=== PATIENT | male | born 1955 | race Hispanic/Latino ===

== ENCOUNTER 2024-02-02 21:15 | Inpatient (IN) | payer MEDICARE, OTHER ==
[2024-02-02] MEDS ORDERED: Amiodarone 450 MG in Dextrose 5% in Water 250 ML IVPB SCH (22:15)
[2024-02-02] MEDS ORDERED: Amiodarone 150 MG in Dextrose 5% in Water 100 ML IVPB SCH (22:15)
[2024-02-02 22:21] LABS: #Basophils 0.03 10x3/uL (0.0-0.2); %Basophils 0.6 % (0.0-1.0); %Eosinophils 6.3 % (0.0-10.0); %Lymphocytes 20.8 % (21.0-51.0); %Monocytes 11.7 % (0.0-10.0); %Neutrophils 60.2 % (42.0-75.0); Hematocrit 47.7 % (42.0-52.0); Hemoglobin 16.3 g/dL (14.0-18.0); Mean Corpuscular HGB CONC 34.2 g/dL (32.0-36.0); Mean Corpuscular Hemoglobin 33.3 pg (27.0-31.0); Mean Corpuscular Volume 97.3 fL (78.0-98.0); Mean Platelet Volume 9.6 fL (7.4-10.4); Platelet Count 141 10x3/uL (130-400); RBC Distribution Width 13.9 % (11.5-14.5)
[2024-02-02 22:35] LABS: INR-International Normal Ratio 1.2; PTT 33.5 sec (22.9-36.1); Prothrombin Time 14.7 sec (12.0-14.7)
[2024-02-02 22:38] LABS: ALT (SGPT) 13 U/L (8-55); AST (SGOT) 21 U/L (5-34); Acetaminophen Less than 10 mcg/mL (Less than 10); Albumin 3.7 g/dL (3.4-4.8); Alcohol Less than 10.0 mg/dL (Less than 10); Alkaline Phosphatase 145 U/L (40-110); Anion Gap 15 mmol/L (10-20); BUN (Urea Nitrogen) 20 mg/dL (8.4-25.7); Bilirubin, Total 1.9 mg/dL (0.2-1.2); Calc. Creatinine Clearance 0 mL/min (70-130); Calcium 8.8 mg/dL (7.8-10.44); Carbon Dioxide 26 mmol/L (23-31); Chloride 99 mmol/L (98-107); Estimated GFR 93; Glucose 114 mg/dL (80-115); Potassium 4.1 mmol/L (3.5-5.1); Protein, Total 7.7 g/dL (5.8-8.1); Salicylate Less than 8.0 mg/dL (Less than 8.0); Sodium 136 mmol/L (136-145)
[2024-02-02 22:40] LABS: Troponin I Less than 0.010 ng/mL (< 0.028)
[2024-02-02 22:43] LABS: Amphetamine Not Detected (NotDetected); Barbiturates Screen Not Detected (NotDetected); Benzodiazepine Screen Not Detected (NotDetected); Cocaine Metabolite Screen Not Detected (NotDetected); Methadone Not Detected (NotDetected); Methamphetamine Not Detected (NotDetected); Opiate Screen Not Detected (NotDetected); Oxycodone Screen Not Detected (NotDetected); Phencyclidine (PCP) Not Detected (NotDetected); THC/Cannabinoid Screen Not Detected (NotDetected); Tricyclic Screen Not Detected (NotDetected)
[2024-02-02] MEDS ORDERED: Calcium Carbonate 500 MG ChewTAB PO PRN (22:51)
[2024-02-02] MEDS ORDERED: Ondansetron PF 4 MG/2 ML Vial IVP PRN (22:51)
[2024-02-02] MEDS ORDERED: Acetaminophen 325 MG TAB PO PRN (22:51)
[2024-02-02] MEDS ORDERED: Ondansetron ODT 4 MG TAB PO PRN (22:51)
[2024-02-02] MEDS ORDERED: Senokot S 8.6-50 MG TAB PO PRN (22:51)
[2024-02-02] MEDS ORDERED: Metoprolol Tartrate 5 MG (5 mL) VIAL ONE (23:09)
[2024-02-03 01:08] LABS: Troponin I Less than 0.010 ng/mL (< 0.028)
[2024-02-03] MEDS: Amiodarone 150 MG in Dextrose 5% in Water 100 ML IVPB SCH (01:42)
[2024-02-03 01:56] VITALS: BMI 41.5
[2024-02-03 03:34] LABS: #Basophils 0.04 10x3/uL (0.0-0.2); %Basophils 0.7 % (0.0-1.0); %Eosinophils 8.2 % (0.0-10.0); %Lymphocytes 24.5 % (21.0-51.0); %Monocytes 14.4 % (0.0-10.0); %Neutrophils 51.9 % (42.0-75.0); Hematocrit 35.8 % (42.0-52.0); Mean Corpuscular HGB CONC 33.5 g/dL (32.0-36.0); Mean Corpuscular Hemoglobin 33.1 pg (27.0-31.0); Mean Corpuscular Volume 98.9 fL (78.0-98.0); Mean Platelet Volume 9.3 fL (7.4-10.4); Platelet Count 148 10x3/uL (130-400); RBC Distribution Width 13.8 % (11.5-14.5); Red Blood Cell (RBC) Count 3.62 mill/uL (4.70-6.10)
[2024-02-03] MEDS: Communication Order-Pharmacy FS ONE (04:10)
[2024-02-03 04:15] LABS: Anion Gap 14 mmol/L (10-20); BUN (Urea Nitrogen) 17 mg/dL (8.4-25.7); Calc. Creatinine Clearance 163 mL/min (70-130); Calcium 8.3 mg/dL (7.8-10.44); Carbon Dioxide 25 mmol/L (23-31); Chloride 100 mmol/L (98-107); Estimated GFR 94; Glucose 133 mg/dL (80-115); Potassium 4.1 mmol/L (3.5-5.1); Sodium 135 mmol/L (136-145)
[2024-02-03 04:20] LABS: Troponin I Less than 0.010 ng/mL (< 0.028)
[2024-02-03] MEDS: Amiodarone 450 MG in Dextrose 5% in Water 250 ML IVPB SCH (07:59)
[2024-02-03] MEDS: Enoxaparin 80 MG (0.8 mL) SYRINGE SC SCH (08:02)
[2024-02-03] MEDS: Magnesium 2 GM/50 ML(in water) 2 GM in Premix 1 BAG IVPB SCH (08:14)
[2024-02-03] MEDS: Levothyroxine Sodium 50 MCG TAB PO SCH (11:22)
[2024-02-03] MEDS: Terazosin HCl 5 MG CAP PO SCH (20:04)
[2024-02-03] MEDS: Digoxin 0.5 MG/2 ML AMP SLOW IVP SCH (20:04)
[2024-02-04] MEDS: Digoxin 0.5 MG/2 ML AMP SLOW IVP SCH (01:26)
[2024-02-04] MEDS: Levothyroxine Sodium 50 MCG TAB PO SCH (05:23)
[2024-02-05 07:48] VITALS: TEMP 98.1
[2024-02-05] MEDS ORDERED: Lidocaine Viscous Sol 2% 15 ml UD Cup ONE (10:15)
[2024-02-05] MEDS ORDERED: Midazolam HCl 2 mg/2 ml Vial ONE ×2 (10:59→11:52)
[2024-02-05] MEDS ORDERED: fentaNYL 50 mcg/mL 1 mL Vial ONE (11:00)
[2024-02-05 13:12] VITALS: BP 132/79
[2024-02-05] MEDS: Apixaban 5 MG TAB PO SCH (14:16)
[2024-02-05] MEDS: Amiodarone 200 MG TAB PO SCH (14:16)
[2024-02-05] MEDS ORDERED: Apixaban 5 MG TAB PO SCH (21:00)
== END 2024-02-05 18:14 | disposition home or self-care (01) | DRG 309 ==
LOC: ERS 21:15 → OBS 22:55
PROVIDERS: ADMIT Internal Medicine; ATTEND Family Medicine
DX: I48.3 Typical atrial flutter (principal); I50.22 Chronic systolic (congestive) heart failure; Z68.41 Body mass index [BMI] 40.0-44.9, adult; I42.9 Cardiomyopathy, unspecified; E03.9 Hypothyroidism, unspecified; G47.33 Obstructive sleep apnea (adult) (pediatric); E66.01 Morbid (severe) obesity due to excess calories; E66.9 Obesity, unspecified; N40.0 Benign prostatic hyperplasia without lower urinary tract symptoms; I11.0 Hypertensive heart disease with heart failure; M79.89 Other specified soft tissue disorders; Z79.899 Other long term (current) drug therapy; Z99.89 Dependence on other enabling machines and devices
CPT/HCPCS: 36415; 71045; 80048; 80053; 80306; 80307; 83735; 83880; 84439; 84443; 84481; 84484; 85025; 85610; 85730; 86850; 86900; 86901; 92960; 93005; 93010; 93306; 93312; 94760; 96374; 96375; 99152; 99153; J0282; J1160; J1650; J2250; J3010; J3475; J7070

== ENCOUNTER 2024-02-11 06:35 | Day surgery (SDC) | payer MEDICARE ==
[2024-02-08 11:46] VITALS: BMI 39.6
[2024-02-11] MEDS ORDERED: Heparin 10,000 UNITS/ 10 ML VIAL ONE (07:03)
[2024-02-11] MEDS ORDERED: PROPOFOL 20 ML ONE (08:43)
[2024-02-11] MEDS ORDERED: Lidocaine 1% PF 5 ML VIAL ONE (08:43)
[2024-02-11] MEDS ORDERED: Etomidate 40 MG (20 mL) VIAL ONE (08:43)
[2024-02-11] MEDS ORDERED: fentaNYL 50 mcg/mL 1 mL Vial ONE ×2 (08:43→09:07)
[2024-02-11] MEDS ORDERED: Glycopyrrolate 0.2 MG/ML 5 ML SYRINGE ONE (08:43)
[2024-02-11] MEDS ORDERED: Midazolam HCl 2 mg/2 ml Vial ONE (08:43)
[2024-02-11] MEDS ORDERED: ePHEDrine Sulfate 50 MG/10 ML VIAL ONE (08:44)
[2024-02-11] MEDS ORDERED: PHENYLEPHRINE-NS 100 MCG/ML 10 ML SYRINGE ONE (08:44)
[2024-02-11] MEDS ORDERED: Dexamethasone 20 MG/5 ML VIAL ONE (09:06)
[2024-02-11] MEDS ORDERED: Ondansetron PF 4 MG/2 ML Vial ONE (09:07)
[2024-02-11] MEDS ORDERED: Rocuronium Bromide 10 MG/ML (10ML VIAL) ONE ×2 (09:12→09:52)
[2024-02-11] MEDS ORDERED: Esmolol 100 MG/10 ML VIAL ONE (09:21)
[2024-02-11] MEDS ORDERED: SUGAMMADEX SODIUM 200 MG/2 ML VIAL ONE (09:52)
== END 2024-02-11 15:21 | disposition home or self-care (01) ==
LOC: SDC 06:35
PROVIDERS: ATTEND Internal Medicine Cardiovascular Disease
PROC: 02583ZZ Destruction of Conduction Mechanism, Percutaneous Approach (ICD-10-PCS; principal; 2024-02-11)
PROC: 02583ZZ Destruction of Conduction Mechanism, Percutaneous Approach (ICD-10-PCS; 2024-02-11)
DX: I48.3 Typical atrial flutter (principal); I48.0 Paroxysmal atrial fibrillation; I10 Essential (primary) hypertension; E03.9 Hypothyroidism, unspecified; I42.9 Cardiomyopathy, unspecified; N40.0 Benign prostatic hyperplasia without lower urinary tract symptoms; G47.33 Obstructive sleep apnea (adult) (pediatric); Z79.899 Other long term (current) drug therapy
CPT/HCPCS: 71045; 93005; 93653; C1760; C1769; C1894 ×5; C2630; J1100; J1644; J2250; J2405; J2704; J3010; 93010